=== PATIENT | female | born 1990 | race Caucasian/White ===

== ENCOUNTER 2016-08-13 16:56 | Emergency (ER) | payer OTHER ==
[2016-08-13 18:01] LABS: BASO % 0.3 % (0.1-1.2); EOS # 0.2 10_X3_uL (0.0-0.4); EOS % 1.6 % (0.7-5.8); GRAN # 6.5 10_X3_uL (1.6-6.1); GRAN % 69.2 % (34.0-71.1); HEMATOCRIT 39.5 % (34-45); HEMOGLOBIN 12.8 g/dL (11.2-15.7); LYMPH % 21.5 % (19.3-51.7); MEAN CORPUSCULAR HEMOGLOBIN 26.2 pg (27.0-33.0); MEAN CORPUSCULAR HGB CONC 32.4 g/dL (32.0-36.0); MEAN CORPUSCULAR VOLUME 80.9 fL (79-95); MONO # 0.7 10_X3_uL (0.2-0.9); MONO % 7.4 % (4.7-12.5); PLATELET COUNT 233 x10_3/uL (182-369); RED BLOOD COUNT 4.88 x10_6/uL (3.9-5.2); RED CELL DISTRIBUTION WIDTH 14.5 % (11.7-14.4); WHITE BLOOD COUNT 9.5 x10_3/uL (4.0-10.0)
[2016-08-13 18:02] LABS: URINE BILIRUBIN NEGATIVE (NEGATIVE); URINE BLOOD NEGATIVE (NEGATIVE); URINE GLUCOSE (UA) NORMAL (NORMAL); URINE KETONE NEGATIVE (NEGATIVE); URINE LEUKOCYTE ESTERASE 2+ (NEGATIVE); URINE NITRATE NEGATIVE (NEGATIVE); URINE PROTEIN TRACE (NEGATIVE); UROBILINOGEN NORMAL mg/dL (<1.0)
[2016-08-13 18:16] LABS: BLOOD UREA NITROGEN 13 mg/dL (7-18); CALCIUM 9.3 mg/dL (8.7-10.7); CARBON DIOXIDE 24 mmol/L (21-32); CREATININE 0.8 mg/dL (0.6-1.3); GLUCOSE,RANDOM 95 mg/dL (70-99); POTASSIUM 3.8 mmol/L (3.5-5.1); SODIUM 141 mmol/L (136-145)
[2016-08-13 18:45] LABS: URINE BACTERIA TRACE (NONE SEEN); URINE SQUAMOUS EPITHELIAL CELL 0-10 /[HPF] (NONE SEEN)
== END 2016-08-13 19:08 | disposition home or self-care (01) ==
LOC: ER 16:56
PROVIDERS: General Practice
DX: N39.0 Urinary tract infection, site not specified (principal); J02.9 Acute pharyngitis, unspecified; R10.31 Right lower quadrant pain; E66.01 Morbid (severe) obesity due to excess calories; K21.9 Gastro-esophageal reflux disease without esophagitis; F17.210 Nicotine dependence, cigarettes, uncomplicated; Z79.899 Other long term (current) drug therapy; Z88.1 Allergy status to other antibiotic agents; Z87.42 Personal history of other diseases of the female genital tract
CPT/HCPCS: 36415; 80048; 81001; 81025; 85025; 87070; 87086; 87880; 99070; 99283